=== PATIENT | female | born 1950 | race Caucasian/White ===

== ENCOUNTER 2020-03-24 07:09 | Emergency (ER) | payer BC, MEDICARE ==
[~2020-03-24] VITALS: Ht 154.9 cm; Wt 72.7 kg
[2020-03-24 07:22] VITALS: BP 147/89
[2020-03-24] MEDS ORDERED: HYDR453. TP ×2 (07:38→07:41)
[2020-03-24] MEDS ORDERED: METH4TAB6 PO (07:38)
--- NOTE | 2020-03-24 07:39 | PHYS DOC ---
Past History Past Medical History: High Cholesterol Past Surgical History: Other Additional Past Surgical Histo: willian-en-y (gastic bypass) Alcohol Use: None General Adult EDM: Chief Complaint: ALLERGIC REACTION HPI: HPI: 69-year-old female past medical history significant for hyperlipidemia and " anaphylaxis," presents the ED with complaints of pruritic rash that initially started on both hands and extending up her forearms, on abdomen and lower back. Rash started on [place] g[place] (10 days ago) and briefly improved with prednisone 10 mg for 4 days (has no more prednisone). States she has had 2 allergic reactions, a year, and a year and a half ago, due to cantaloupe and watermelon, respectively. Both times she required IM epinephrine but was discharged from the ER after observation for 4-8 hours ([facility]). Has an epi pen in her purse. Has not seen an director veterinary. 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 States she was trying to wait and see Dr. Stacy tomorrow but has anxiety about the rash getting worse, requests "IM solu- medrol." States on prior reactions she had eyelid and facial swelling with throat "tickeling," States her speech changed but was not drooling. Has never been admitted or intubated, states her BP never dropped low/no LOC. Patient denies any new medications. Cannot recall any new lotions, perfumes, detergents, environmental exposure or new food exposure. with no similar sxs. ROS: Currently no associated mucous membrane involvement, headache, neck stiffness, genital rash, fever or chills, blisters or open wounds, blurry vision or otalgia. Review of Systems: Review of Systems: Constitutional: Denies fever or chills Eyes: Denies change in visual acuity HENT: Denies nasal congestion or sore throat or speech changes or drooling Respiratory: Denies cough or shortness of breath or difficulties breathing Cardiovascular: Denies chest pain or edema GI: Denies abdominal pain, nausea, vomiting, bloody stools or diarrhea : Denies dysuria or hematuria Musculoskeletal: Denies back pain or joint pain Integument: Denies diaphoresis or skin sloughing or blistering or flushed skin Neurologic: Denies headache, nuchal rigidity, focal weakness or sensory changes Endocrine: Denies polyuria or polydipsia Lymphatic: Denies swollen glands Psychiatric: Denies depression or anxiety Allergies: Allergies: Allergies Coded Allergies Type Severity Reaction Last Updated Verified Egg Derived Allergy Unknown 03/24/20 Yes Penicillins Allergy Unknown 03/24/20 Yes levofloxacin Allergy Unknown 03/24/20 Yes melon Allergy Unknown 03/24/20 Yes Physical Exam: PE: Constitutional: Well developed, well nourished, no acute distress, non-toxic appearance. HENT: Normocephalic, atraumatic, no nuchal rigidity or meningismus, no mucous membrane ulcers/bleeding/edema, Mallampati 2 Eyes: EOMI, conjunctiva normal, no discharge. Neck: Normal range of motion, supple, Cardiovascular: S1/2 present, regular rhythm Lungs & Thorax: Speaking in full sentences, bilateral equal chest rise, no tachypnea or increased work of breathing, no tripod positioning Abdomen: soft, no tenderness, Skin: Warm, dry, no erythema, urticarial red macules over wrists/dorsum of both hands, forearms and upper abdomen-minimal on low back, negative Nikolsky sign Back: No tenderness, no CVA tenderness. [] Extremities: No tenderness, no cyanosis, no edema Neurologic: Alert and oriented X 3, normal motor function, normal sensory function, no focal deficits noted. [] Psychologic: Affect normal, judgement normal, mood normal. [] Current Patient Data: Vital Signs: Vital Signs Date Time Temp Pulse Resp B/P (MAP) Pulse Ox O2 Delivery O2 Flow Rate FiO2 03/24/20 07:22 97.9 70 18 147/89 (108) 100 EKG: EKG: [] Radiology/Procedures: Radiology/Procedures: [] Heart Score: Risk Factors: Risk Factors: DM, Current or recent (<one month) smoker, HTN, HLP, family history of CAD, obesity. Risk Scores: Score 0 - 3: 2.5% MACE over next 6 weeks - Discharge Home Score 4 - 6: 20.3% MACE over next 6 weeks - Admit for Clinical Observation Score 7 - 10: 72.7% MACE over next 6 weeks - Early Invasive Strategies Course & Med Decision Making: Course & Med Decision Making Pertinent Labs and Imaging studies reviewed. (See chart for details) Concern for acute allergic reaction with urticaria, h/o angioedema, no angioedema or anaphylaxis on todays' presentation. IM dexamethasone given in ed. Will DC home with Medrol Dosepak (recommend otc benadryl). Patient took Benadryl 50 mg at 5am (takes 1 tablet qhs). Also prescribed 2% hydrocortisone cream. Declines offer for EpiPen (has refills at pharmacy and currently shows me her EpiPen in her purse). Will discharge home with strict ED return precautions for angioedema/biphasic allergic rash, worsening rash, fever, shortness of breath/drooling or mucous membrance involvemnet. Encouraged urgent outpatient follow-up with PMD and director veterinary. Life-threatening processes were considered but are low suspicion at this time, given history, physical exam and ED workup. Pt was educated on all prescription medications and adverse effects. All patient's questions were answered and pt was stable at time of discharge. Life/limb-threatening differential includes but is not limited to, erythema multiforme, gautam-lorelei syndrome, toxic epidermal necrolysis, staphylococcal scalded skin syndrome, necrotizing fasciitis/myositis/cellulitis, purpura fu lminans, heparin or warfarin induced skin necrosis, angioedema, anaphylaxis drug rash, disseminated intravascular coagulation, disseminated gonococcal disease, vasculitis, septicemia, petechial disorder or coagulopathy, viral exanthem, Kawasaki's disease or life-threatening burn requiring burn center management or escharotomy. I spoken with the patient and her caregivers. I explained the patient's condition, diagnoses and treatment plan based on the information available to me at this time. I have answered the patient and her caregiver's questions and addressed any concerns. The patient and her caregivers have a good understandi ng of patient's diagnosis, condition and treatment plan as can be expected at this point. Vital signs have been stable. Patient's condition is stable and appropriate for discharge from the emergency department. Patient will pursue further outpatient evaluation with primary care physician or other designated or consulting physician as outlined in the discharge instructions. The patient and/or caregivers are agreeable to this plan of care and follow-up instructions have been explained in detail. The patient and/or caregivers have received these instructions in written form and have expressed an understanding of the discharge instructions. The patient and/or caregivers are aware that any significant change of condition or worsening of symptoms should prompt immediate return to this or the closest emergency department or call to 911. Guerline Disclaimer: Guerline Disclaimer: This electronic medical record was generated, in whole or in part, using a voice recognition dictation system. Departure Departure: Impression: Primary Impression: Allergic reaction Additional Impressions: Urticaria History of angioedema Disposition: 01 DC HOME SELF CARE/HOMELESS Condition: STABLE Referrals: MARÍA VAZQUEZ (PCP) in 3- 5 days for re-evaluation Patient Instructions: Angioedema, Hives Additional Instructions: [facility] Call for appointment [phone] [facility] [address], [address] (Address for directions and navigation systems: [address] [place] [address]) EMERGENCY DEPARTMENT GENERAL DISCHARGE INSTRUCTIONS Thank you for coming to [facility] (ED) today and trusting us with you care. We trust that you had a positivie experience in our Emergency Department. If you wish to speak to the department management, you may call the director at [phone]. YOUR FOLLOW UP INSTRUCTIONS ARE FOLLOWS: 1. Do you have a private Doctor? If you do not have a private doctor, please ask for a resource list of physicians or clinics that may be able to assist you with follow up care. 2. The Emergency Physician has interpreted your x-rays. The X-Ray specialist will also review them. If there is a change in the findings, you will be notified in 48 hours when at all possible. 3. A lab test or culture has been done, your results will be reviewed and you will be notified if you need a change in treatment. ADDITIONAL INSTRUCTIONS AND INFORMATION: 1. Your care today has been supervised by a physician who is specially trained in emergency care. Many problems require more than one evaluation for a complete diagnosis and treatment. We recommend that you schedule your follow up appointment as recommended to ensure complete treatment of you illness or injury. If you are unable to obtain follow up care and continue to have a problem, or if your condition worsens, we recommend that you return to the ED. 2. We are not able to safely determine your condition over the phone nor are we able to give sound medical advice over the phone. For these safety reasons, if you call for medical advice we will ask you to come to the ED for further evaluation. 3. If you have any questions regarding these discharge instructions please call the ED at [phone]. SAFETY INFORMATION: In the interest of safety, wellness, and injury prevention; we encourage you to wear your sealbelt, if you smoke; quite smoking, and we encourage family to use a protective helmet for bicycling and other sporting events that present an increased risk for head injury. IF YOUR SYMPTOMS WORSEN OR NEW SYMPTOMS DEVELOP, OR YOU HAVE CONCERNS ABOUT YOUR CONDITION; OR IF YOUR CONDITION WORSENS WHILE YOU ARE WAITING FOR YOUR FOLLOW UP APPOINTMENT; EITHER CONTACT YOUR PRIMARY CARE DOCTOR, THE PHYSICIAN WHOSE NAME AND NUMBER YOU WERE GIVEN, OR RETURN TO THE ED IMMEDIATELY. Scripts Hydrocortisone (HYDROCORTISONE) 453.6 Gm Cream..g. 1 ARMOND TP TID for rash, #15 EACH 2.5% cream please Prov: JHONY HENRY DO 03/24/20 Methylprednisolone (METHYLPREDNISOLONE) 4 Mg Tab.ds.pk 4 MG PO as directed for rash, #21 TAB Take 6 tabs x1 day, then 5 tabs x1 day, then 4 tabs x1 day, then 3 tabs x1 day, then 2 tabs x1 day, then 1 tabs x1 day Prov: JHONY HENRY DO 03/24/20 JHONY HENRY DO Mar 24, 2020 07:39
[2020-03-24] MEDS ORDERED: DEXAMETHASONE SOD PHOS 10 MG/ML VIAL. IM ONE (07:45)
== END 2020-03-24 07:48 | disposition home or self-care (01) ==
LOC: ER 07:09
DX: T78.40XA Allergy, unspecified, initial encounter (principal); L50.9 Urticaria, unspecified; E78.00 Pure hypercholesterolemia, unspecified; Z91.012 Allergy to eggs; Z88.0 Allergy status to penicillin; Z88.1 Allergy status to other antibiotic agents; Z91.018 Allergy to other foods; X58.XXXA Exposure to other specified factors, initial encounter
CPT/HCPCS: 96372; 99283; J1100